=== PATIENT | male | born 1955 ===

== ENCOUNTER 2020-08-16 17:02 | Observation (INO) ==
[2020-08-16] MEDS ORDERED: ONDANSETRON 4 MG/2 ML VIAL IV PRN (20:22)
[2020-08-16] MEDS ORDERED: DEXTROSE 50% 25 GM/50 ML VIAL IV PRN (20:22)
[2020-08-16] MEDS ORDERED: ACETAMINOPHEN 325 MG TABLET PO PRN (20:22)
[2020-08-16] MEDS ORDERED: GLUCAGON 1 MG VIAL IM PRN (20:22)
[2020-08-16] MEDS ORDERED: SODIUM PHOSPHATE ENEMA 133 ML BOTTLE RECTAL SCH (21:00)
[2020-08-16] MEDS: ENOXAPARIN 40 MG/0.4 ML SYRINGE SUBCUT SCH (23:37)
[2020-08-17 06:01] LABS: Basophils % 0.3 % (0.0-0.8); Eosinophils # 0.1 10*3/uL (0.0-0.87); Eosinophils % 3.3 % (0.00-10.9); Hematocrit 34.1 VOL% (42.0-52.0); Hemoglobin 11.3 GM/DL (14.0-18.0); Immature Granulocytes % 0.3 %; Immature Granulocytes Absolute 0.01 #; Lymphocytes # 0.9 10*3/uL (1.4-4.0); Lymphocytes % 23.4 % (21.2-54.2); Mean Corpuscular HGB Conc 33.1 GM/DL (32-36); Mean Corpuscular Volume 94.7 FL (87-102); Mean Platelet Volume 10.4 FL (9.6-12.0); Monocytes % 12.9 % (1.7-12.7); Neutrophils % 59.8 % (38.7-73.9); Platelet Count 189 T/CUMM (130-400); Red Cell Distribution Width 14.2 % (9.3-17.3); White Blood Count 3.6 T/CUMM (4-12)
[2020-08-17 06:35] LABS: Albumin 3.1 G/DL (3.4-5.0); Bilirubin,Total 1.1 MG/DL (0.2-1.0); Calcium 8.6 MG/DL (8.5-10.1); Osmolality,Calculated 285.7 MOS/KG (273-304); Potassium 3.8 MMOL/L (3.5-5.1); Total Protein 5.5 G/DL (6.4-8.2)
[2020-08-17] MEDS: PANTOPRAZOLE 40 MG TABLET PO SCH (08:40)
[2020-08-17] MEDS: DOCUSATE SODIUM 100 MG CAPSULE PO SCH ×2 (09:45→20:51)
[2020-08-17] MEDS: POLYETHYLENE GLYCOL POWDER 17 GM PACK PO SCH ×2 (09:45→20:51)
[2020-08-17] MEDS: CYPROHEPTADINE 4 MG TABLET PO SCH ×3 (09:45→20:51)
[2020-08-17] MEDS: CHOLECALCIFEROL 1,000 UNIT TABLET PO SCH (09:45)
[2020-08-17] MEDS: LINACLOTIDE 145 MCG CAPSULE PO SCH (12:48)
[2020-08-17] MEDS: ENOXAPARIN 40 MG/0.4 ML SYRINGE SUBCUT SCH (20:51)
[2020-08-18 05:51] LABS: Basophils % 0.5 % (0.0-0.8); Eosinophils # 0.2 10*3/uL (0.0-0.87); Eosinophils % 5.7 % (0.00-10.9); Hematocrit 36.2 VOL% (42.0-52.0); Hemoglobin 11.6 GM/DL (14.0-18.0); Immature Granulocytes % 0.3 %; Immature Granulocytes Absolute 0.01 #; Lymphocytes # 1.2 10*3/uL (1.4-4.0); Lymphocytes % 30.7 % (21.2-54.2); Mean Corpuscular Volume 98.6 FL (87-102); Mean Platelet Volume 10.2 FL (9.6-12.0); Monocytes % 12.8 % (1.7-12.7); Platelet Count 194 T/CUMM (130-400); Red Blood Count 3.67 MC/CUMM (3.8-5.5); Red Cell Distribution Width 14.1 % (9.3-17.3); White Blood Count 3.8 T/CUMM (4-12)
[2020-08-18 06:04] LABS: Calcium 8.4 MG/DL (8.5-10.1); Osmolality,Calculated 281.1 MOS/KG (273-304); Potassium 3.8 MMOL/L (3.5-5.1)
[2020-08-18] MEDS: POLYETHYLENE GLYCOL POWDER 17 GM PACK PO SCH ×3 (08:12→21:03)
[2020-08-18] MEDS: CYPROHEPTADINE 4 MG TABLET PO SCH ×3 (08:12→21:02)
[2020-08-18] MEDS: CHOLECALCIFEROL 1,000 UNIT TABLET PO SCH (08:12)
[2020-08-18] MEDS: PANTOPRAZOLE 40 MG TABLET PO SCH (08:12)
[2020-08-18] MEDS: DOCUSATE SODIUM 100 MG CAPSULE PO SCH ×2 (08:13→21:02)
[2020-08-18] MEDS: LINACLOTIDE 145 MCG CAPSULE PO SCH (08:13)
[2020-08-18] MEDS: LACTULOSE 20 GM/30 ML UDCUP PO SCH ×2 (16:11→21:02)
[2020-08-18] MEDS: ENOXAPARIN 40 MG/0.4 ML SYRINGE SUBCUT SCH (21:03)
[2020-08-18] MEDS: METOCLOPRAMIDE 10 MG/2 ML VIAL IV SCH (21:12)
[2020-08-18] MEDS: MAGNESIUM OXIDE 400 MG TABLET PO SCH (21:13)
[2020-08-19] MEDS: METOCLOPRAMIDE 10 MG/2 ML VIAL IV SCH ×2 (01:59→08:18)
[2020-08-19 06:11] LABS: Basophils % 0.5 % (0.0-0.8); Eosinophils # 0.2 10*3/uL (0.0-0.87); Eosinophils % 4.5 % (0.00-10.9); Hematocrit 36.2 VOL% (42.0-52.0); Hemoglobin 11.9 GM/DL (14.0-18.0); Immature Granulocytes % 0.3 %; Immature Granulocytes Absolute 0.01 #; Lymphocytes % 25.3 % (21.2-54.2); Mean Corpuscular HGB Conc 32.9 GM/DL (32-36); Mean Corpuscular Volume 96.3 FL (87-102); Mean Platelet Volume 10.1 FL (9.6-12.0); Monocytes % 10.7 % (1.7-12.7); Neutrophils % 58.7 % (38.7-73.9); Platelet Count 176 T/CUMM (130-400); Red Blood Count 3.76 MC/CUMM (3.8-5.5); Red Cell Distribution Width 14.1 % (9.3-17.3); White Blood Count 3.8 T/CUMM (4-12)
[2020-08-19 06:40] LABS: Calcium 8.4 MG/DL (8.5-10.1); Osmolality,Calculated 285.8 MOS/KG (273-304); Potassium 3.8 MMOL/L (3.5-5.1)
[2020-08-19] MEDS: CYPROHEPTADINE 4 MG TABLET PO SCH (08:18)
[2020-08-19] MEDS: DOCUSATE SODIUM 100 MG CAPSULE PO SCH (08:18)
[2020-08-19] MEDS: CHOLECALCIFEROL 1,000 UNIT TABLET PO SCH (08:19)
[2020-08-19] MEDS: PANTOPRAZOLE 40 MG TABLET PO SCH (08:19)
[2020-08-19] MEDS: MAGNESIUM OXIDE 400 MG TABLET PO SCH (08:56)
[2020-08-19] MEDS: LINACLOTIDE 145 MCG CAPSULE PO SCH (08:56)
[2020-08-19] MEDS: POLYETHYLENE GLYCOL POWDER 17 GM PACK PO SCH (08:56)
[2020-08-19] MEDS: LACTULOSE 20 GM/30 ML UDCUP PO SCH (08:56)
[2020-08-19] MEDS ORDERED: LACTULOSE 20 GM/30 ML UDCUP PO PRN (09:20)
[2020-08-19] MEDS ORDERED: POLYETHYLENE GLYCOL POWDER 17 GM PACK PO PRN (09:20)
[2020-08-19 11:50] VITALS: BP 104/59
[2020-08-19] MEDS ORDERED: CYPROHEPTADINE 4 MG TABLET PO SCH (21:00)
== END 2020-08-19 13:40 | disposition home or self-care (01) ==
LOC: N.5E → SUATTDRO 20:25
PROVIDERS: ADMIT Internal Medicine; ATTEND Hospitalist